=== PATIENT | female | born 1995 | race Caucasian/White ===

== ENCOUNTER → 2019-03-01 | Outpatient (CLI) | payer BC, OTHER ==
[~2019-03-01] MED LIST: HYDACE5325 PO
== END | disposition home or self-care (01) ==
LOC: LAB SHORT 15:59 → LAB 15:59
DX: Z34.00 Encounter for supervision of normal first pregnancy, unspecified trimester (principal)
CPT/HCPCS: 87081; 87653

== ENCOUNTER 2019-03-31 09:35 | Inpatient (IN) | payer BC, OTHER ==
[~2019-03-31] VITALS: Ht 160 cm; Wt 107.0 kg
[2019-03-31 10:23] LABS: BASOPHILS ABSOLUTE AUTO 0.03 K/mm3 (0.00-0.23); BASOPHILS PERCENT AUTO 0 % (0-2); EOSINOPHILS ABSOLUTE AUTO 0.01 K/mm3 (0.00-0.68); EOSINOPHILS PERCENT AUTO 0 % (0-6); Hemoglobin 11.8 g/dL (11.5-16.0); IMMATURE GRAN ABSOLUTE AUTO 0.17 K/mm3 (0.00-0.10); IMMATURE GRAN PERCENT AUTO 1 % (0-1); LYMPHOCYTES ABSOLUTE AUTO 1.46 K/mm3 (0.84-5.20); LYMPHOCYTES PERCENT AUTO 7 % (21-46); MONOCYTES ABSOLUTE AUTO 1.16 K/mm3 (0.16-1.47); MONOCYTES PERCENT AUTO 6 % (4-13); Mean Corpuscular HGB 27.6 pg (26.0-34.0); Mean Corpuscular HGB Conc 31.9 g/dL (31.5-36.5); Mean Corpuscular Volume 87 fL (80-100); Mean Platelet Volume 11.3 fL (9.1-12.4); NEUTROPHILS ABSOLUTE AUTO 18.31 K/mm3 (1.96-9.15); NEUTROPHILS PERCENT AUTO 87 % (41-73); Platelet Count 219 K/mm3 (150-400); RDW Standard Deviation 43.8 fL (35.1-46.3); Red Blood Cell Count 4.27 M/mm3 (3.80-5.20); White Blood Cell Count 21.14 K/mm3 (4.00-11.30)
[2019-04-01 05:30] LABS: Hematocrit 26.3 % (33.0-51.0); Hemoglobin 8.6 g/dL (11.5-16.0); Mean Corpuscular HGB 27.9 pg (26.0-34.0); Mean Corpuscular HGB Conc 32.7 g/dL (31.5-36.5); Mean Corpuscular Volume 85 fL (80-100); Mean Platelet Volume 11.1 fL (9.1-12.4); Platelet Count 177 K/mm3 (150-400); RDW Coefficient Variation 14.2 % (11.7-14.2); Red Blood Cell Count 3.08 M/mm3 (3.80-5.20); White Blood Cell Count 19.55 K/mm3 (4.00-11.30)
--- NOTE | 2019-04-01 18:43 | NUR ---
REPORT TO ONCOMING SHIFT
[2019-04-02 05:26] LABS: Hematocrit 25.6 % (33.0-51.0); Hemoglobin 8.1 g/dL (11.5-16.0); Mean Corpuscular HGB 27.6 pg (26.0-34.0); Mean Corpuscular HGB Conc 31.6 g/dL (31.5-36.5); Mean Corpuscular Volume 87 fL (80-100); Mean Platelet Volume 10.8 fL (9.1-12.4); Platelet Count 170 K/mm3 (150-400); RDW Coefficient Variation 14.5 % (11.7-14.2); Red Blood Cell Count 2.93 M/mm3 (3.80-5.20); White Blood Cell Count 13.28 K/mm3 (4.00-11.30)
--- NOTE | 2019-04-02 08:40 | NUR ---
FIRST TIME PARENTS, NERVOUS ABOUT GOING HOME. FEEDING ISSUES. RN AT BEDSIDE TO HELP WITH FEEDS UNTIL FEELING CONFIDENT THEN WILL DC HOME. PLAN LACATION RN TO [facility] THIS AM. HAVING BACK ACHE FROM EPIDURAL, OTEHRWIASE DOING WELL. FOB SUPPORTIVE. LOTS OF BRF TEACHING DONE. PLANT OT DC HOME THIS LATE MORNING EARLY AFTERNOON.
[2019-04-02] MEDS ORDERED: Verotin-Gr Cap1 EACH PO (10:51)
--- NOTE | 2019-04-02 12:25 | NUR ---
ALL DC TEACHING DONE WITH PT & FOB. QUESTIONS ANSWERED. BANDS MATCHED, DC HOME WITH NB IN [facility].
--- NOTE | 2019-04-02 18:27 | NUR ---
CONSULT PRIOR TO DISCHARGE HOME. BABY IS ASLEEP SKIN TO SKIN ON MOM. SHE STATES HE HAS BEEN LATCHING BETTER, BUT STILL SOMEWHAT INCONSISTANT. INSTRUCT IN CHANGES TO EXPECT DURING THE FIRST WEEK WITH FEEDINGS AND WITH BABY AND REFERRED TO [facility] [employer] PAGE [address] FOR PHOTOS AND INFORMATION. INSTRUCT HOW TO WIDEN LATCH FURTHER IF SHE FEELS PINCHING DURING SUCKLING, MASSAGE BREAST TO HELP RELEASE MILK EASIER. QUESTIONS ANSWERED.
== END 2019-04-02 12:21 | disposition home or self-care (01) | DRG 807 ==
LOC: OBS 09:35 → BC 09:38 → OBS 09:49 → BC 09:51
PROVIDERS: ADMIT Advanced Practice Midwife
PROC: 10E0XZZ Delivery of Products of Conception, External Approach (ICD-10-PCS; principal; 2019-03-31)
PROC: 0KQM0ZZ Repair Perineum Muscle, Open Approach (ICD-10-PCS; 2019-03-31)
PROC: 3E0R3BZ Introduction of Anesthetic Agent into Spinal Canal, Percutaneous Approach (ICD-10-PCS; 2019-03-31)
DX: O70.1 Second degree perineal laceration during delivery (principal); Z37.0 Single live birth; Z3A.40 40 weeks gestation of pregnancy; O76 Abnormality in fetal heart rate and rhythm complicating labor and delivery
CPT/HCPCS: 36415; 51702; 85025; 85027; 85460; 96372; J1885; J2001; J2210; J2405; J2590; J2790; J3010; J7120

== ENCOUNTER → 2019-05-17 | Outpatient (CLI) | payer BC, OTHER ==
[~2019-05-17] MED LIST changes: +Verotin-Gr Cap1 EACH PO
[2019-05-20 07:06] LABS: CHLAMYDIA TRACHOMATIS, NAA Negative (Negative); NEISSERIA GONORRHOEAE, NAA Negative (Negative)
== END | disposition home or self-care (01) ==
LOC: LAB SHORT 11:04 → LAB 11:04
PROVIDERS: Advanced Practice Midwife
DX: Z11.3 Encounter for screening for infections with a predominantly sexual mode of transmission (principal)
CPT/HCPCS: 87491; 87591

== ENCOUNTER → 2021-12-16 | Outpatient (CLI) | payer BC, OTHER | END | disposition home or self-care (01) | LOC: LAB SHORT 15:19 | PROVIDERS: Advanced Practice Midwife | DX: Z01.419 Encounter for gynecological examination (general) (routine) without abnormal findings (principal) | CPT/HCPCS: G0123 ==

== ENCOUNTER → 2022-05-21 | Outpatient (CLI) | payer BC ==
[2022-05-23 04:08] LABS: CHLAMYDIA TRACHOMATIS, NAA Negative (Negative)
== END | disposition home or self-care (01) ==
LOC: LAB SHORT 09:05
PROVIDERS: Advanced Practice Midwife
DX: Z11.3 Encounter for screening for infections with a predominantly sexual mode of transmission (principal)
CPT/HCPCS: 87491; 87591

== ENCOUNTER → 2022-11-17 | Outpatient (CLI) | payer BC | LOC: LAB SHORT 14:28 | DX: O09.93 Supervision of high risk pregnancy, unspecified, third trimester (principal) | CPT/HCPCS: 87081; 87150 ==

== ENCOUNTER 2022-12-09 14:24 | Inpatient (IN) | payer BC ==
[~2022-12-09] VITALS: Ht 160 cm; Wt 110.0 kg
[2022-12-09 15:35] LABS: BASOPHILS ABSOLUTE AUTO 0.04 K/mm3 (0.00-0.23); BASOPHILS PERCENT AUTO 0 % (0-2); EOSINOPHILS ABSOLUTE AUTO 0.02 K/mm3 (0.00-0.68); EOSINOPHILS PERCENT AUTO 0 % (0-6); Hematocrit 38.9 % (33.0-51.0); Hemoglobin 13.2 g/dL (11.5-16.0); IMMATURE GRAN ABSOLUTE AUTO 0.21 K/mm3 (0.00-0.10); IMMATURE GRAN PERCENT AUTO 1 % (0-1); LYMPHOCYTES ABSOLUTE AUTO 2.41 K/mm3 (0.84-5.20); LYMPHOCYTES PERCENT AUTO 12 % (21-46); MONOCYTES ABSOLUTE AUTO 0.93 K/mm3 (0.16-1.47); MONOCYTES PERCENT AUTO 5 % (4-13); Mean Corpuscular HGB 27.2 pg (26.0-34.0); Mean Corpuscular HGB Conc 33.9 g/dL (31.5-36.5); Mean Corpuscular Volume 80 fL (80-100); Mean Platelet Volume 10.6 fL (9.1-12.4); NEUTROPHILS ABSOLUTE AUTO 15.79 K/mm3 (1.96-9.15); NEUTROPHILS PERCENT AUTO 81 % (41-73); Platelet Count 283 K/mm3 (150-400); RDW Coefficient Variation 14.1 % (11.7-14.2); RDW Standard Deviation 40.6 fL (35.1-46.3); Red Blood Cell Count 4.85 M/mm3 (3.80-5.20)
[2022-12-10] MEDS ORDERED: IBUP800 PO (11:11)
--- NOTE | 2022-12-10 16:50 | NUR ---
PATIENT EDUCATED, QUESTIONS ANSWERED, BANDS MATCHED TO BABY. PPFU APPT MADE WITH [facility]. WALKED FAMILY TO CAR.
== END 2022-12-10 16:40 | disposition home or self-care (01) | DRG 807 ==
LOC: OBS 14:24 → BC 14:53
PROVIDERS: ADMIT Advanced Practice Midwife
PROC: 10E0XZZ Delivery of Products of Conception, External Approach (ICD-10-PCS; principal; 2022-12-09)
PROC: 00HU33Z Insertion of Infusion Device into Spinal Canal, Percutaneous Approach (ICD-10-PCS; 2022-12-09)
PROC: 3E0R3BZ Introduction of Anesthetic Agent into Spinal Canal, Percutaneous Approach (ICD-10-PCS; 2022-12-09)
PROC: 3E0R3NZ Introduction of Analgesics, Hypnotics, Sedatives into Spinal Canal, Percutaneous Approach (ICD-10-PCS; 2022-12-09)
DX: O99.214 Obesity complicating childbirth (principal); Z37.0 Single live birth; O26.893 Other specified pregnancy related conditions, third trimester; Z3A.39 39 weeks gestation of pregnancy; Z67.11 Type A blood, Rh negative; Z88.0 Allergy status to penicillin; Z86.16 Personal history of COVID-19
CPT/HCPCS: 36415; 59025; 85025; 86850; 86900; 86901; A9270; J2590; J3010; J7120